=== PATIENT | female | born 1965 | race African-American/Black ===

== ENCOUNTER 2018-12-11 23:32 | Emergency (ER) | payer SELFPAY ==
[2018-12-11 23:58] VITALS: BP 146/84
--- NOTE | 2018-12-12 04:11 | RADIOLOGY REPORT (SQ) ---
EXAM DESCRIPTION: XR CHEST 2 VIEWS COMPLETED DATE/TME: 12/11/2018 00:00 CLINICAL HISTORY: 52 years, Female, cough COMPARISON: None. NUMBER OF VIEWS: 2 TECHNIQUE: Frontal and lateral views of the chest LIMITATIONS: None. FINDINGS: Heart size is normal. Lungs are clear. No pneumothorax IMPRESSION: Negative chest copyright 2010 [employer]- All Rights Reserved
[2018-12-12] MEDS ORDERED: ASPIRIN 81 MG TABLET, CHEWABLE PO ONE (08:28)
--- NOTE | 2018-12-12 16:33 | ER Document Report ---
Entered by RIVERA LR SCRIBE 12/12/18 0717 Acting as scribe for:GUS CARRILLO DO ED General - General Chief Complaint: Shortness Of Breath Stated Complaint: RIGHT SIDE PAIN,COUGHING Time Seen by Provider: 12/12/18 06:42 Information source: Patient Notes: 52-year-old female that presents today with complaints of right lateral and upper abdominal pain for about 1 week. Patient states that she had a gastric sleeve placed 2 years ago. Patient is on Lasix for CHF and she states she has been out of Lasix for approximately 3 weeks as she is traveling back and forth to [place] and still seeing the doctors there. Patient complains of bilateral leg swelling, left greater than right which she states is normal for her since prior DVT. Patient states the last time she traveled was about 3 months ago. Patient also mentions chest heaviness that is worse with lying down. Patient denies any change in her pain with exertion. Patient states she "may have had a heart attack in her early 20s". Patient states her father had an OK at age 49. Patient states she has a dry cough. Patient denies vomiting, diarrhea, constipation, shortness of breath, or history of cocaine abuse. TRAVEL OUTSIDE OF THE [place] IN LAST 30 DAYS: No - Related Data Allergies/Adverse Reactions: No Known Allergies Allergy (Unverified 12/11/18 23:34) Past Medical History - General Information source: Patient - Social History Smoking Status: Never Smoker Cigarette use (# per day): No Frequency of alcohol use: None Lives with: Family Family History: Reviewed & Not Pertinent Patient has suicidal ideation: No Patient has homicidal ideation: No - Past Medical History Cardiac Medical History: Reports: Hx Congestive Heart Failure, Hx DVT Past Surgical History: Reports: Hx Cardiac Surgery, Other - Gastric sleeve Review of Systems - Review of Systems Constitutional: No symptoms reported EENT: No symptoms reported Cardiovascular: See HPI, Chest pain - "Feels heavy" Respiratory: See HPI, Cough. denies: Short of breath Gastrointestinal: See HPI, Abdominal pain. denies: Diarrhea, Vomiting, Constipation Genitourinary: No symptoms reported Female Genitourinary: No symptoms reported Musculoskeletal: See HPI, Leg swelling Skin: No symptoms reported Hematologic/Lymphatic: No symptoms reported Neurological/Psychological: No symptoms reported -: Yes All other systems reviewed and negative Physical Exam - Vital signs Vitals: Temp Pulse Resp BP Pulse Ox 98 F 50 L 16 146/84 H 100 12/11/18 23:37 12/11/18 23:37 12/11/18 23:37 12/11/18 23:37 12/11/18 23:37 - Notes Notes: PHYSICAL EXAM GENERAL: Alert, interacts well. No acute distress. HEAD: Normocephalic, atraumatic. EYES: Pupils equal, round, and reactive to light. Extraocular movements intact. ENT: Oral mucosa moist, tongue midline. NECK: Full range of motion. Supple. Trachea midline. LUNGS: Clear to auscultation bilaterally, no wheezes, rales, or rhonchi. No respiratory distress. HEART: Regular rate and rhythm. No murmurs, gallops, or rubs. ABDOMEN: Soft, non-tender. Non-distended. Bowel sounds present in all 4 quadrants. No guarding, rigidity, or rebound. EXTREMITIES: Moves all 4 extremities spontaneously. No edema, radial and dorsalis pedis pulses 2/4 bilaterally. No cyanosis. NEUROLOGICAL: Alert and oriented x3. Normal speech. PSYCH: Normal affect, normal mood. SKIN: Warm, dry, normal turgor. No rashes or lesions noted. Course - Re-evaluation Re-evalutation: 12/12/18 16:31 Orders were put in to evaluate for congestive heart failure, acute coronary syndrome and pulmonary embolism. When nurses went to draw the blood patient was no longer in her room. Patient eloped. Chest x-ray shows no acute process. - Vital Signs Vital signs: Temp Pulse Resp BP Pulse Ox 98 F 50 L 16 146/84 H 100 12/11/18 23:37 12/11/18 23:37 12/11/18 23:37 12/11/18 23:37 12/11/18 23:37 Discharge - Discharge Clinical Impression: Chest pain of uncertain etiology, Right lateral abdominal pain Disposition: ELOPED Scribe Attestation: 12/12/18 16:32 I personally performed the services described in the documentation, reviewed and edited the documentation which was dictated to the scribe in my presence, and it accurately records my words and actions. I personally performed the services described in the documentation, reviewed and edited the documentation which was dictated to the scribe in my presence, and it accurately records my words and actions.
== END 2018-12-12 09:12 | disposition left against medical advice (07) ==
LOC: ER 23:32
DX: R07.9 Chest pain, unspecified (principal); R10.11 Right upper quadrant pain; R06.02 Shortness of breath; R05 Cough; I50.9 Heart failure, unspecified; Z79.899 Other long term (current) drug therapy
CPT/HCPCS: 71046; 99281